=== PATIENT | female | born 1975 | race Caucasian/White ===

== ENCOUNTER 2018-11-27 09:30 | Outpatient (CLI) | payer BC, SELFPAY ==
[2018-11-27 10:34] LABS: Abs Immature Grans 0.01 k/cumm (0.0-0.09); Absolute Basophil Count 0.03 k/cumm (0.0-0.2); Absolute Eosinophil Count 0.13 k/cumm (0.0-0.7); Absolute Lymphocyte Count 2.62 k/cumm (1.2-3.4); Absolute Monocyte Count 0.88 k/cumm (0.11-0.7); Absolute Neutrophil Count 4.61 k/cumm (1.2-6.7); Basophils % 0.4; Eosinophils % 1.6; HCT 41.6 % (36.0-46.0); HGB 13.3 g/dL (12.0-15.5); Immature Grans % 0.1; Lymphocytes % 31.6; Mean Corpuscular Hemoglobin 28.9 pg (27.0-33.0); Mean Corpuscular Volume 90.2 fL (80-95); Mean Platelet Volume 9.9 fL (8.0-11.0); Monocytes % 10.6; Neutrophils % 55.7; Platelet Count 272 x1000/uL (130-400); RBC 4.61 m/cumm (4.00-5.20); RBC Distribution Width 13.6 % (11.7-14.6); White Blood Cell Count 8.28 k/cumm (4.4-10.8)
[2018-11-27 11:26] LABS: ALT 20 U/L (12-78); AST 20 U/L (15-37); Albumin 3.7 g/dL (3.4-5.0); Alkaline Phosphatase 120 U/L (46-116); Anion Gap 8.6 mmol/L (3-11); BUN 11 mg/dL (7-18); CO2 28.4 mmol/L (21.0-32.0); CREATININE 0.86 mg/dL (0.55-1.02); Chloride 103 mmol/L (98-107); Cholesterol 193 mg/dL (50-200); Glucose 93 mg/dL (70-100); HDL Cholesterol 109 mg/dL (40-60); LDL CHOLESTEROL 67 mg/dL (<100); Potassium 4.2 mmol/L (3.5-5.1); Sodium 140 mmol/L (136-145); TSH 2.75 uIU/mL (0.358-3.74); Total Protein 7.5 g/dL (6.4-8.2); Triglyceride 31 mg/dL (30-150); Vitamin B12 587 pg/mL (193-986)
[2018-11-27 12:07] LABS: FREE T4 0.92 ng/dL (0.76-1.46)
== END 2018-11-27 09:50 ==
PROVIDERS: PCP Nurse Practitioner Family; Visit Provider Nurse Practitioner Family
DX: R20.0 Anesthesia of skin (principal)
CPT/HCPCS: 36415; 80053; 80061; 83721; 82607; 83036; 84439; 84443; 85025

== ENCOUNTER 2018-12-03 00:37 | Outpatient (CLI) | payer BC, SELFPAY ==
--- NOTE | 2018-12-03 14:25 | DI.MRI_ITS ---
SYMPTOMS/DIAGNOSIS: LACK OF SENSATION TO BILATERAL UPPER AND LOWER EXTREMITIES, CONCERN FOR MS, R20.0 BRAIN MRI: T2 sagittal, and axial, and diffusion weighted axial, and T2 axial HEMO, and T1 axial and T2 axial FLAIR BLADE, and T2 sagittal FLAIR BLADE pulse sequences were performed. No signal abnormality is demonstrated in the brain. There is no evidence of a hemorrhage or mass. The ventricles are intact. No regions of restricted diffusion are identified. The normal flow void is demonstrated in the cerebral vessels. SUMMARY: Normal brain MRI.
== END 2018-12-03 00:57 ==
PROVIDERS: PCP Nurse Practitioner Family; Visit Provider Nurse Practitioner Family
DX: R20.0 Anesthesia of skin (principal)
CPT/HCPCS: 70551

== ENCOUNTER 2019-10-14 09:36 | Outpatient (CLI) | payer SELFPAY ==
--- NOTE | 2019-10-14 10:00 | DI.RAD_ITS ---
EXAM: XR KNEE LT 3V AP,LAT,ALIZE INDICATION: Lt knee pain s/p fall, M25.562. COMPARISON: XR KNEE RT 3V AP,LAT,ALIZE from 10/14/2019 TECHNIQUE: 2D digital imaging was performed. FINDINGS: Bilateral knees: There is no evidence of fracture or joint effusion. The joint spaces are well main tained throughout. There are no significant degenerative changes. IMPRESSION: Negative bilateral knees. DATA REPOSITORY: RADIATION DOSE DELIVERED:
== END 2019-10-14 09:56 ==
PROVIDERS: PCP Nurse Practitioner Family; Visit Provider Nurse Practitioner Family
DX: M25.562 Pain in left knee (principal); Z91.81 History of falling
CPT/HCPCS: 73562

== ENCOUNTER 2022-01-08 15:17 | Outpatient (REF) | payer SELFPAY ==
--- NOTE | 2022-01-08 14:00 | SKI_PTH ---
PATIENT: Annie Stover LOC: [facility] U#:[id number] AGE/SX: 46/F ROOM: RE01/08/[address]: Jj Mendoza MD : 1975 BED: DIS: 01/08/2022 SPEC #: [id number] RECD: 01/08/22 18:11 STATUS: SANDER REEdwige #: [id number] RED: 01/08/22 14:[address]: Jj Mendoza DEPT: Surgical Specimen RECD BY: Roxanne Durant ENTERED: 01/08/22 18:11 SP TYPE: KATHY CASTELLANO DR: CLIFFORD Levine Tissues: 1 - SKIN BIOPSY(SHAVE/PUNCH) Procedures: SKIN LEVEL 4 Comments: [id number]
== END 2022-01-08 15:18 | disposition home or self-care (01) ==
LOC: LBN 15:17
PROVIDERS: PCP Nurse Practitioner Family; Visit Provider Otolaryngology
DX: D22.22 Melanocytic nevi of left ear and external auricular canal (principal)
CPT/HCPCS: 88305

== ENCOUNTER 2023-03-29 12:52 | Emergency (ER) | payer SELFPAY ==
[2023-03-29 12:57] VITALS: BP 120/81; PULSE 71; RESP 18; TEMP 36.7; O2SAT 97
--- NOTE | 2023-03-29 13:15 | DI.RAD_ITS ---
Exam(s) XR ANKLE LT COMPLETE EXAM: XR ANKLE LT COMPLETE CLINICAL HISTORY: pain TECHNIQUE: 2D digital imaging was performed. Three views. COMPARISON: CR LEFT ANKLE COMPLETE from 04/27/2010 CR LEFT FOOT COMPLETE from 06/10/2017 FINDINGS: BONES: On the lateral view, there is a sliver of bone seen at the dorsal aspect of the talus which co uld represent an avulsion or chip fracture. No additional abnormalities are seen. No bony destructi ve lesion is seen. JOINTS:The ankle mortise is normally aligned. SOFT TISSUE: Normal. IMPRESSION: Chip versus fracture avulsion fracture from the dorsal aspect of the talus. DATA REPOSITORY: RADIATION DOSE DELIVERED:
--- NOTE | 2023-03-29 13:17 | ED.GENADUL_ITS ---
Discharge Plan Disposition Patient Disposition: Home Discharge Details Clinical Impression: Avulsion fracture of left talus Primary Care Provider: Nay Sanabria ED Provider: Corey Castaneda Home Meds and New Rx's Prescriptions: No Action albuterol sulfate 90 mcg/actuation HFA aerosol inhaler 2 puff IH Q6H PRN (Reason: shortness of breath or wheezing) Qty: 8.5 6RF Rx Instructions: 2 puffs inhale q6hrs prn for wheezing or shortness of breath amoxicillin-pot clavulanate 875-125 mg tablet 1 tab PO BID Qty: 14 0RF Patient Comments: not taking Rx Instructions: Take with meal. Take 1 pill every 12 hours x 7days albuterol sulfate 90 mcg/actuation HFA aerosol inhaler 2 puff inhalation Q6H PRN (Reason: shortness of breath or wheezing) Qty: 6.7 0RF Rx Instructions: 2 puffs every 6 hours for cough/sob/wheeze (DME) AeroChamber Z-Stat Plus-Flw Sg Spacer See Rx Instructions .Route Qty: 1 0RF Rx Instructions: As directed ibuprofen 800 MG tablet 800 mg PO TID PRN PRNQty: 60 2RF Discharge Instructions Additional Instructions: You are found to have a small avulsion fracture, a small chip of bone, pulled off the talus which is a bone in the foot. This will heal on its own over the course of the next 6 weeks. It is important that you use the hard shoe for some support and crutches as needed. Please follow-up with your orthopedic surgeon. You will be called for an appointment. In the meanwhile you can take some Tylenol and or Motrin for the pain. Please elevate the foot as much as possible and apply ice packs several times a day. Discharge Data Discharge Date/Time-TO BE ENTERED AT DEPARTURE: 03/29/23 14:19 Medical Decision Making Medical Records Medical records narrative: 47-year-old presented to the emergency room with ankle pain. She was diagnosed with an avulsion fracture of the talus. The left foot was placed in a walking shoe and crutches were provided. Patient will follow-up with Ortho next week. Patient instructed on Tylenol Motrin elevation and ice HPI General Date/Time Provider Initiated Documentation: 03/29/23 13:17 . HPI Narrative: Patient states that she rolled her ankle and hurt her ankle while walking up some steps. She rolled her foot and fell on left side sustaining injury to the left ankle landed on her hip and her left arm which seem to be okay. States that she cannot bear weight on her left ankle secondary to the pain. She is also noted some mild swelling to the left ankle on the lateral aspect No head trauma. No chest pain no shortness of breath no abdominal pain no back pain. Related Data Home Medications Medication Instructions Recorded Confirmed ibuprofen 800 mg tablet 800 mg PO TID PRN PRN #60 tabs 12/03/17 03/29/23 albuterol sulfate 90 mcg/actuation 2 puff inhalation Q6H PRN 07/21/18 03/29/23 aerosol inhaler shortness of breath or wheezing #8.5 grams albuterol sulfate 90 mcg/actuation 2 puff inhalation Q6H PRN 06/12/22 03/29/23 aerosol inhaler shortness of breath or wheezing #6.7 grams amoxicillin 875 mg-potassium 1 tab PO BID #14 tabs 06/12/22 06/12/22 clavulanate 125 mg tablet inhalational spacing device #1 ea 06/12/22 (AeroChamber Z-Stat Plus-Flow Signal) Previous Rx's Medication Instructions Recorded ibuprofen 800 mg tablet 800 mg PO TID PRN PRN #60 tabs 12/03/17 albuterol sulfate 90 mcg/actuation 2 puff inhalation Q6H PRN 07/21/18 aerosol inhaler shortness of breath or wheezing #8.5 grams albuterol sulfate 90 mcg/actuation 2 puff inhalation Q6H PRN 06/12/22 aerosol inhaler shortness of breath or wheezing #6.7 grams amoxicillin 875 mg-potassium 1 tab PO BID #14 tabs 06/12/22 clavulanate 125 mg tablet inhalational spacing device #1 ea 06/12/22 (AeroChamber Z-Stat Plus-Flow Signal) Allergies Allergy/AdvReac Type Severity Reaction Status Date / Time iohexol Allergy Unknown SOB/HIVES Verified 03/29/23 13:18 Iodinated Contrast Media Allergy Hives Verified 03/29/23 13:18 [Iodinated Contrast- Oral and IV Dye] hydromorphone HCl AdvReac Intermediate deacreased Verified 03/29/23 13:18 [From Dilaudid] bp latex AdvReac Intermediate Skin Rash Verified 03/29/23 13:18 lidocaine AdvReac Intermediate Hives, sob Verified 03/29/23 13:18 meperidine HCl [From Demerol] AdvReac Intermediate hypotension Verified 03/29/23 13:18 oxycodone AdvReac Intermediate Nausea Verified 03/29/23 13:18 shellfish derived AdvReac Intermediate Hives, sob Verified 03/29/23 13:18 triamcinolone acetonide AdvReac Intermediate Hives, sob Verified 03/29/23 13:18 [From Kenalog] hydrocodone bitartrate AdvReac Mild vomiting Verified 03/29/23 13:18 [From Vicodin] General Stated Complaint: Orthopedic YOLANDA: 4 Review of Systems Narrative: 10 point review of system is negative unless otherwise specified in the HPI PFSH All Active Problems (Updated 03/29/23 @ 14:01 by Corey Castaneda MD) Avulsion fracture of left talus (Acute) Skin lesion of left ear (Acute) Prediabetes (Chronic ~11/2018) Major depressive disorder (Chronic) Generalized anxiety disorder (Chronic) Migraine headache with aura (Chronic) Mild intermittent asthma (Chronic) Allergic rhinitis (Chronic) Social anxiety disorder (Chronic) Medical History Cholelithiasis Endometriosis Nevus of helix of left ear Thoracic outlet syndrome (~2012) Clinical diagnosis, no electrodiagnostic evidence of this though Surgical History H/O bilateral salpingo-oophorectomy (05/28/08) H/O bursectomy (08/28/17) Right hip with IT band release 08/28/17 Left hip with IT band release 12/04/17 H/O resection of rib (~2012) Right cervical rib resection and pectoralis muscle release For suspected thoracic outlet syndrome Hx of esophagogastroduodenoscopy (06/09/07) S/P arthroscopy of right shoulder (09/15/14) S/P carpal tunnel release (09/13/10) right hand S/P cholecystectomy S/P colonoscopy (06/09/07) S/P tonsillectomy S/P vaginal hysterectomy For endometriosis Family History Mother Multiple sclerosis Lung cancer Thyroid cancer Stomach cancer Father Protein C deficiency Heart disease Myocardial infarction Multiple [place] Brother No problems noted. Brother , at 5mo old of cardiomyopathy Cardiomyopathy Daughter No problems noted. Daughter No problems noted. Daughter Multiple sclerosis Maternal Grandfather Diabetes Maternal Grandmother Dementia Paternal Grandfather , of burst appendicitis No problems noted. Paternal Grandmother Protein C deficiency Social History Smoking/Tobacco Use Status: Never Smoking risk assessment performed?: Yes Drug use: Never Substance use type: does not use Do you feel safe in your relationship?: Yes Female Reproductive History Menstrual Menopause type: surgical History History 3 Para 3 Hx # Term Pregnancies Multiple births Hx # Pregnancies Ectopic pregnancies AB induced Hx Number of Living Children 3 AB spontaneous Exam Narrative Exam Narrative: Awake alert content 3, no acute distress pleasant cooperative Normocephalic atraumatic PERRL EOMI MMM anicteric Normal work of breathing Distal pulses pedal 2+ normal cap refill Left ankle. Mild swelling anterior to the lateral malleolus with some point tenderness. No crepitus. There is some mild discomfort to palpation of the right ankle anterior to the malleolus. Rest of extremities full range of motion no signs of injury. Course Vital Signs Vital signs: Vital Signs Temperature 36.7 C 03/29/23 12:57 Pulse 71 03/29/23 12:57 Respiratory Rate 18 03/29/23 12:57 Blood Pressure 120/81 03/29/23 12:57 Pulse Oximetry 97 03/29/23 12:57 Temperature 36.7 C 03/29/23 12:57 Temperature Source Skin 03/29/23 12:57 Pulse 71 03/29/23 12:57 Respiratory Rate 18 03/29/23 12:57 Blood Pressure 120/81 03/29/23 12:57 Blood Pressure Position Sitting 03/29/23 12:57 Pulse Oximetry 97 03/29/23 12:57 Oxygen Delivery Method Room Air 03/29/23 12:57 Oxygen Flow Rate 0 03/29/23 12:57 Pain Level 8 03/29/23 12:57
== END 2023-03-29 14:19 | disposition home or self-care (01) ==
PROVIDERS: Emergency Provider Emergency Medicine; PCP Nurse Practitioner Family
DX: M25.572 Pain in left ankle and joints of left foot (principal); S92.155A Nondisplaced avulsion fracture (chip fracture) of left talus, initial encounter for closed fracture; W10.8XXA Fall (on) (from) other stairs and steps, initial encounter; Y93.01 Activity, walking, marching and hiking; Y92.89 Other specified places as the place of occurrence of the external cause; Y99.9 Unspecified external cause status
CPT/HCPCS: 99283; 73610

== ENCOUNTER 2023-04-16 09:19 | Outpatient (CLI) | payer SELFPAY ==
--- NOTE | 2023-04-16 09:00 | DI.RAD_ITS ---
Exam(s) XR FOOT LT COMPLETE EXAM: XR FOOT LT COMPLETE CLINICAL HISTORY: foot fx f/u. TECHNIQUE: 2D digital imaging was performed of the left foot. Three images were obtained. AP, obli que and lateral views were obtained. COMPARISON: CR LEFT FOOT COMPLETE from 05/26/2017 CR XR ANKLE LT COMPLETE from 03/29/2023 FINDINGS: BONES: There is no change in appearance of the thin bone on the dorsal aspect of the talus which may represent a small avulsion/chip fracture. There is a question on the lateral view of the lucency at the anterior superior aspect of the calcaneus which may represent a nondisplaced fracture. No bony d estructive lesion is seen. JOINTS: No dislocation present. SOFT TISSUE: Normal. IMPRESSION: 1. Stable bony fragment on the dorsal aspect of the talus which may represent a small avulsion/chip f racture. 2. Lucency through the anterior superior aspect of the calcaneus on the lateral view suspicious for n ondisplaced fracture. Please correlate clinically. A CT scan of the calcaneus may be obtained for f urther evaluation. Unexpected findings DATA REPOSITORY: RADIATION DOSE DELIVERED:
== END 2023-04-16 09:20 | disposition home or self-care (01) ==
LOC: DIORS 09:20
PROVIDERS: PCP Nurse Practitioner Family; Referring Provider Nurse Practitioner Family; Visit Provider Student in an Organized Health Care Education/Training Program
DX: S92.155D Nondisplaced avulsion fracture (chip fracture) of left talus, subsequent encounter for fracture with routine healing (principal); X58.XXXD Exposure to other specified factors, subsequent encounter
CPT/HCPCS: 73630

== ENCOUNTER 2023-05-14 08:54 | Outpatient (CLI) | payer SELFPAY ==
--- NOTE | 2023-05-14 08:45 | DI.RAD_ITS ---
Exam(s) XR FOOT LT COMPLETE EXAM: XR FOOT LT COMPLETE CLINICAL HISTORY: F/U FRACTURE. TECHNIQUE: 2D digital imaging was performed of the left foot. Three images were obtained. AP, obli que and lateral views were obtained. COMPARISON: CR XR FOOT LT COMPLETE from 04/16/2023 FINDINGS: BONES: The osseous fragment on the dorsal aspect of the talus is still present. There is again seen a lucency at the anterior superior aspect of the calcaneus on the lateral view. No new fractures crystal ntified. No bony destructive lesion is seen. JOINTS: No dislocation present. SOFT TISSUE: Normal. IMPRESSION: Findings are unchanged concerning the fracture fragment at the dorsal aspect of the talus and the ant erior superior calcaneus. DATA REPOSITORY: RADIATION DOSE DELIVERED:
== END 2023-05-14 08:55 | disposition home or self-care (01) ==
LOC: DIORS 08:54
PROVIDERS: PCP Nurse Practitioner Family; Visit Provider Student in an Organized Health Care Education/Training Program
DX: S92.252D Displaced fracture of navicular [scaphoid] of left foot, subsequent encounter for fracture with routine healing (principal); X58.XXXD Exposure to other specified factors, subsequent encounter
CPT/HCPCS: 73630